=== PATIENT | male | born 1950 | race Caucasian/White ===

== ENCOUNTER 2022-01-21 09:12 | Outpatient (REF) | payer OTHER, SELFPAY ==
--- NOTE | 2022-01-21 13:25 | MHC.AU.ANO ---
Adult Audiological Evaluation Date of Visit: 01/21/22 Reason for Appointment: Patient reports that his spouse has been expressing concern for his hearing. He feels he hears okay in most daily situations. He has noticed persistent tinnitus for the past few years. Ear History: Ear Deformity: None Reported Recent Ear Drainage: None Reported Recent Ear Pain: None Reported Family History of Hearing Loss?: No Recent Ear Infections: None Reported Ear Infections in Childhood: None Reported History of Ear Wax Buildup: None Reported Previous Ear Surgery: None Reported Bothersome Tinnitus/Ringing/Noises in Ears: Both Ears Ear used on the phone: Right Ear Blocked/Full Sensation in Ear(s): None Reported History of occupational noise exposure?: No History: No Otoscopy: Right Ear: Exostoses noted Left Ear: Exostoses noted Tympanometry: Tympanometry performed due to: To assess integrity of the middle ear system Right Ear: Normal Middle Ear System (Type A) Left Ear: Normal Middle Ear System (Type A) Hearing Evaluation: Transducer(s) Used: Insert Earphones Method: Conventional Audiometry Stimuli Used: Right Ear: Description of Hearing: Normal from 250-1000 Hz, sloping to moderately-severe sensorineural hearing loss by 8000 Hz Left Ear: Description of Hearing: Normal from 250-1000 Hz, sloping to moderately-severe sensorineural hearing loss by 8000 Hz Speech Recognition Threshold (SRT): Method Used: Recorded Lists Stimuli Used: Spondee Words Right Ear: 20 dBHL Left Ear: 20 dBHL Word Discrimination: Method: Recorded Lists Word Lists Used: W-22 Right Ear: 92% at 65 dBHL Left Ear: 96% at 65 dBHL Most Comfortable Level (MCL): Right Ear: 65 dBHL Left Ear: 65 dBHL Recommendations: Audiological re-evaluation in one year. Amplification may not be warranted at this time. Patient feels he is still hearing well in most daily situations. If he begins to notice it is starting to impact his daily life, he is welcome to schedule a hearing aid evaluation. Diagnosis: Primary Diagnosis: H90.3 Bilateral Sensorineural Hearing Loss Signature: Provider: Candie Bhandari, CCC-A
== END 2022-01-21 09:13 | disposition home or self-care (01) ==
LOC: HO.SH 09:12
PROVIDERS: Visit Provider Internal Medicine
DX: Z01.118 Encounter for examination of ears and hearing with other abnormal findings (principal); H90.3 Sensorineural hearing loss, bilateral
CPT/HCPCS: 92557; 92567